=== PATIENT | female | born 1950 | race Caucasian/White ===

== ENCOUNTER 2017-08-20 07:58 | Day surgery (SDC) | payer MEDICARE, BC ==
[~2017-08-20 07:58] MED LIST: Lactated Ringers 1,000 ML IV SCH; Lidocaine 1%/Sod Bicarbonate in NS 8.4% 1 ML Syringe PRN; Sodium Chloride 0.9% 10 ML Syringe FLUSH PRN
[2017-08-20] MEDS ORDERED: Propofol 200 MG/20 ML SDV ONE (08:21)
--- NOTE | 2017-08-20 08:21 | PCM.PREANE ---
Preanesthetic Assessment - Anesthesia/Transfusion/Family Hx Anesthesia History: Prior Anesthesia Without Reaction Family History of Anesthesia Reaction: No Transfusion History: No Prior Transfusion(s) - Review of Systems General: Fatigue (flu over new years) Pulmonary: No Symptoms Cardiovascular: No Symptoms Gastrointestinal: Diarrhea Other: Reports: Easy Bruising, Liver Problems, Sinus Problem (allergies) - Physical Assessment NPO Status Date: 08/20/17 NPO Status Time: 01:00 (sip) Pulse: 91 O2 Sat by Pulse Oximetry: 94 Respiratory Rate: 16 Blood Pressure: 141/97 Temperature: 97.6 F Height: 5 ft 3 in Weight: 66.587 kg ASA Class: 2 Mental Status: Alert & Oriented x3 Airway Class: Mallampati = 1 Dentition: Reports: Partial (bottom) Thyro-Mental Finger Breadths: 3 Mouth Opening Finger Breadths: 3 ROM/Head Extension: Full Lungs: Clear to Auscultation, Normal Respiratory Effort Cardiovascular: Regular Rate, Regular Rhythm - Allergies Allergies/Adverse Reactions: Allergies Allergy/AdvReac Type Severity Reaction Status Date / Time acetaminophen Allergy Nausea and Verified 08/17/17 13:52 Vomiting codeine Allergy Nausea Verified 08/17/17 13:52 hydrocodone Allergy Nausea and Verified 08/17/17 13:52 Vomiting morphine Allergy Nausea Verified 08/17/17 13:52 - Blood Blood Available: No - Anesthesia Plan Pre-Op Medication Ordered: Beta Flakita Beta Flakita: Metoprolol Med Last Dose Date: 08/20/17 Med Last Dose Time: 05:30 - Acknowledgements Anesthesia Type Planned: MAC Pt an Appropriate Candidate for the Planned Anesthesia: Yes Alternatives and Risks of Anesthesia Discussed w Pt/Guardian: Yes Pt/Guardian Understands and Agrees with Anesthesia Plan: Yes PreAnesthesia Questionnaire HEENT History: Reports: Impaired Vision, Other (See Below) Other HEENT History: wears glasses, has hearing aids, dentures, dental implants Cardiovascular History: Reports: Afib, Hypertension, Other (See Below) Other Cardiovascular History: coronary artery calcification Respiratory History: Reports: Other (See Below) Other Respiratory History: lung nodule Gastrointestinal History: Reports: Other (See Below) Other Gastrointestinal History: liver biopsy Genitourinary History: Reports: None [employer] History: Reports: None Musculoskeletal History: Reports: None Neurological History: Reports: None Psychiatric History: Reports: None Endocrine/Metabolic History: Reports: None Hematologic History: Reports: None Immunologic History: Reports: None Oncologic (Cancer) History: Reports: Colon, Liver, Lung Dermatologic History: Reports: Other (See Below) Other Dermatologic History: cyst excision from shoulder - Past Surgical History Respiratory Surgical History: Reports: None GI Surgical History: Reports: Colon, Colonoscopy, Other (See Below) Other GI Surgeries/Procedures: liver resection Female Surgical History: Reports: None Male Surgical History: Reports: None Endocrine Surgical History: Reports: None Neurological Surgical History: Reports: None Musculoskeletal Surgical History: Reports: None Oncologic Surgical History: Reports: None - History Comment History Comment: last chemo jul 14- - SUBSTANCE USE Smoking Status *Q: Former Smoker (quit 25 years ago) Tobacco Use Within Last Twelve Months: No Second Hand Smoke Exposure: No Days Per Week of Alcohol Use: 1 Number of Drinks Per Day: 2 Total Drinks Per Week: 2 Recreational Drug Use History: No - HOME MEDS Home Medications: Home Meds Apixaban [Eliquis] 5 mg PO BID 08/17/17 [History] Dexamethasone 4 mg PO BID PRN 08/17/17 [History] Diltiazem HCl [Cardizem Cd] 180 mg PO DAILY 08/17/17 [History] Diphenoxylate HCl/Atropine [Lomotil] 1 dose PO ASDIRECTED PRN 08/17/17 [History] Fluticasone Propionate [Flonase] 1 spray NASBOTH BID PRN 08/17/17 [History] Furosemide [Lasix] 20 mg PO DAILY PRN 08/17/17 [History] Lisinopril [Lisinopril] 20 mg PO DAILY 08/17/17 [History] Metoprolol Succinate 50 mg PO BID 08/17/17 [History] Multivitamin [Daily Tj] 1 tab PO DAILY 08/17/17 [History] Nystatin [Nystatin] 1 dose PO QID PRN 08/17/17 [History] Ondansetron HCl [Zofran] 8 mg PO TID PRN 08/17/17 [History] Prochlorperazine Maleate 10 mg PO QID PRN 08/17/17 [History] traZODone HCl [Trazodone HCl] 50 mg PO BEDTIME PRN 08/17/17 [History] - CURRENT (IN HOUSE) MEDS Current Meds: Current Medications Lactated Ringer's (Ringers, Lactated) 1,000 mls @ 125 mls/hr IV ASDIRECTED KARINA Stop: 08/20/17 23:00 Lidocaine/Sodium Bicarbonate (Buffered Lidocaine 1% In Ns 8.4%) 0.25 ml .XX ONETIME PRN PRN Reason: Prior to IV Start Stop: 08/20/17 18:00 Sodium Chloride (Saline Flush) 10 ml FLUSH ASDIRECTED PRN PRN Reason: Keep Vein Open Stop: 08/20/17 18:00
[2017-08-20] MEDS ORDERED: fentaNYL 100 MCG/2 ML SDV ONE (08:22)
[2017-08-20] MEDS ORDERED: Lidocaine 1% 4 ML ONE (08:23)
[2017-08-20] MEDS ORDERED: Ondansetron 4 MG/2 ML SDV IVPUSH PRN (08:58)
--- NOTE | 2017-08-20 08:59 | PCM.OPNOTE ---
- General Post-Op/Procedure Note Date of Surgery/Procedure: 08/20/17 Operative Procedure(s): colonoscopy to cecum Pre Op Diagnosis: change in bowel habits stage IV colon cancer Post-Op Diagnosis: Same Anesthesia Technique: MAC Primary Surgeon: Jerrod Ferreira EBL in mLs: 0 Complications: None Condition: Good
--- NOTE | 2017-08-20 08:59 | PCM48HPAN ---
Post Anesthesia Note - EVALUATION WITHIN 48HRS OF ANESTHETIC Vital Signs in Normal Range: Yes Patient Participated in Evaluation: Yes Respiratory Function Stable: Yes Airway Patent: Yes Cardiovascular Function Stable: Yes Hydration Status Stable: Yes Pain Control Satisfactory: Yes Nausea and Vomiting Control Satisfactory: Yes Mental Status Recovered: Yes
--- NOTE | 2017-08-21 08:12 | OR ---
DATE OF OPERATION: 08/20/2017 SURGEON: Jerrod Ferreira MD PREOPERATIVE DIAGNOSIS: 1. Change in bowel habits. 2. Personal history of metastatic colon cancer. POSTOPERATIVE DIAGNOSIS: 1. Change in bowel habits. 2. Personal history of metastatic colon cancer. OPERATION PERFORMED: Colonoscopy of the cecum. FINDINGS: An anastomotic scar noted at 20 cm was normal. A few diverticula in the sigmoid colon. The rest of the colon was free of any disease. ANESTHESIA: Done under IV sedation. DESCRIPTION OF PROCEDURE: The patient was taken to the endoscopy room, placed in a supine position, connected to the monitoring equipment, given the IV sedation, and was placed in left lateral position. The perianal area was inspected and was normal. Rectal exam showed good sphincter tone. A video Olympus colonoscope was then introduced into the rectum, and threaded up without problem to the cecum, where the appendicular orifice and the ileocecal valve were identified. Prep was excellent. [place] cleansing score was grade A, and the scope was slowly withdrawn showing the cecum, ascending colon, transverse colon, descending colon, portion of sigmoid colon, and the rectum. Anastomotic ring of the anastomosis was noted, and the anastomotic scar was noted at 20 cm free of any disease and occasional diverticula just above that. The patient tolerated the procedure, and was sent to recovery room in a stable condition. She will be followed up as needed in the clinic. ESTIMATED BLOOD LOSS: MMODAL /[id number]
== END 2017-08-20 09:35 | disposition home or self-care (01) ==
LOC: JD.SDS 07:58
PROVIDERS: ATTEND Surgery
DX: R19.4 Change in bowel habit (principal); K57.30 Diverticulosis of large intestine without perforation or abscess without bleeding; I48.91 Unspecified atrial fibrillation; I10 Essential (primary) hypertension; I25.10 Atherosclerotic heart disease of native coronary artery without angina pectoris; C78.7 Secondary malignant neoplasm of liver and intrahepatic bile duct; C78.00 Secondary malignant neoplasm of unspecified lung; Z85.038 Personal history of other malignant neoplasm of large intestine; Z92.21 Personal history of antineoplastic chemotherapy; Z87.891 Personal history of nicotine dependence; Z79.01 Long term (current) use of anticoagulants; Z79.899 Other long term (current) drug therapy; Z88.5 Allergy status to narcotic agent; Z88.8 Allergy status to other drugs, medicaments and biological substances; Z90.49 Acquired absence of other specified parts of digestive tract; Z98.890 Other specified postprocedural states
CPT/HCPCS: 45378; J3010; J7120; 00811; J2704